=== PATIENT | male | born 1965 | race Caucasian/White ===

== ENCOUNTER → 2018-07-01 14:58 | Outpatient (CLI) | payer BC, SELFPAY ==
--- NOTE | 2018-07-01 11:50 | COLBX_PTH ---
PATIENT: MONTEZ NICOLE LOC: [facility] U#:[id number] AGE/SX: 60/M ROOM: RE07/01/[address]: Dr. Mario Livingston MD : 1965 BED: DIS: SPEC #: [id number] RECD: 07/01/18 14:34 STATUS: DIEGO ALEXANDR #: [id number] THOMAS: 07/01/18 11:[address]: Mario Livingston DEPT: SURGICAL PATHOLOGY RECD BY: Brianne Birmingham ENTERED: 07/01/18 15:50 SP TYPE: COLON BX OTHR DR: AARTI Tissues: A - Splenic capsule B - Sigmoid colon biopsy Procedures: Surgery Specimen Level IV HEADER OPERATION: Colonoscopy with polypectomy PRE-OP DIAGNOSIS: Rectal bleeding TISSUE SUBMITTED: A - Splenic flexure polyp biopsy, rule out adenoma, B - Proximal sigmoid polyp, rule out adenoma MICROSCOPIC DIAGNOSIS A. Splenic flexure polyp, biopsy: Tubular adenoma. B. Proximal sigmoid polyp, polypectomy: Tubular adenoma. NATALIE:kendall 07/02/18 MICROSCOPIC DESCRIPTION Slides are reviewed. GROSS DESCRIPTION A - Received in fixative is one container labeled with the patient's name and designated splenic flexure. The specimen consists of one irregular fragment of light huff soft tissue that measures 0.3 x 0.2 x 0.1 cm. The specimen is totally submitted in one cassette. B - Received in fixative is one container labeled with the patient's name and designated proximal sigmoid. The specimen consists of a polypoid fragment of huff tissue measuring 1.5 x 1 x 0.3 cm. The specimen is trisected and totally submitted in one cassette. / AM:kendall 07/01/18 TC:1 CPT: 01894 x2
== END ==
PROVIDERS: Referring Provider Internal Medicine Gastroenterology; Visit Provider Internal Medicine Gastroenterology
DX: K62.5 Hemorrhage of anus and rectum (principal)
CPT/HCPCS: 88305

== ENCOUNTER 2021-01-06 14:00 | Outpatient (RCR) | payer BC, OTHER, SELFPAY ==
--- NOTE | 2020-11-01 17:04 | HP.PTEVAL_ITS ---
Patient's Visit Information MONTEZ NICOLE is a 55 year old M referred to Physical Therapy by MADELEINE PARKINSON with a diagnosis of R shoulder biceps tenodesis with labral repair 10/06/20. Date of Evaluation: 11/01/20 Physical Therapist: Peter Gibson, PT, ATC - Visit Plan Frequency: 2-3x /Week Duration: 4-6 Weeks Plan: No active shoulder or elbow flexion until 6 weeks. Cont mostly with PROM/mobs for first 2 weeks and then progress to AROM and strengthening ex's consisting of rot cuff strengthening, scap stab ex's, UBE, and CP for pain - Subjective DOS: 10/06/20. Pt had a biceps tenodesis and labral repair in his R shoulder at that time. Pt reports he feels like he is getting a little better, but notes his is still so sore that he has difficulty with sleep at night. Pt is R hand dominant. Pt reports he has no PMHx of R shoulder complications prior to this surgery. 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 Pt reports he worked prior to the surgery. Pt reports his job requires a lot of lifting and work with his hands that could weigh up to 50#. Pt reports the soreness is constant in R shoulder. Pt reports he has not been wearing his sling secondary to experiencing more pain with the sling on. Pt reports No UE tingling or numbness as long as his sling is off. 8/10 at rest, 10/10 pain at worst (at night time while he is sleeping) - Pain R shoulder Pain Intensity (Out of 10): 7 Pain Intensity Range: 10 - Objective Neuro: B UE sensation is WNL to light touch. B bicepital reflex= 2/3. Observa tion: Incisions are fully healed. No signs of infection. ROM: L shoulder flex= 150, abd= 165, ER= 0, IR WNL. R shoulder flex= 95, abd= 80. MMT: L shoulder 5/5 throguhout. R shoulder 3-/5 and painful - Goals Goal 1:: Decrease R shoulder pain x 50% to aid with sleep Goal Time Frame: 4-6 Weeks Goal 2:: Increase R shoulder strength x 1 grade to aid with RTW without limitation Goal Time Frame: 4-6 Weeks Goal 3:: Increase R shoulder flexion and abduction ROM x 30 degrees to aid with overhead activity Goal Time Frame: 4-6 Weeks Goal 4:: I with HEP Goal Time Frame: 4-6 Weeks - Rehabilitation Potential Physical Therapy Diagnosis: R shoulder pain, weakness, and limited ROM secondary to R biceps tenodesis with labral repair Rehabilitation Potential: Good - Anticipated Interventions Patient/Client Instruction: Educate patient on: Condition, Plan of Care For the Purpose of:: To improve self management Therapeutic Exercise to Include: Strength training, Endurance training, Flexibilty training, Passive ROM, Active ROM, Scapular Strength/Stabilization For the Purpose of:: To decrease pain, To increase ROM, To improve muscle performance and motor function Cryotherapy (ice pack, ice massage): Yes For the Purpose of:: To decrease pain Thank you for the opportunity to evaluate your patient. For Medicare and Medicare HMO plans, please review the plan of care and approve it. It will need to be FAXED BACK to us at [phone] for Medicare purposes. For Medicare only, by signing this I certify the plan of care. Please let me know if there are questions or concerns regarding this plan of care. Physician Signature: Date:
--- NOTE | 2021-05-09 10:30 | HP.PT.NRP ---
MONTEZ NICOLE was seen in my office for initial evaluation on 11/01/20. The following Plan of Care was established for this patient: Initial Frequency: 2-3x /Week Initial Duration: 4-6 Weeks Patient/Client Instruction: Educate patient on: Condition, Plan of Care For the Purpose of:: To improve self management Therapeutic Exercise to Include: Strength training, Endurance training, Flexibilty training, Passive ROM, Active ROM, Scapular Strength/Stabilization For the Purpose of:: To decrease pain, To increase ROM, To improve muscle performance and motor function Cryotherapy (ice pack, ice massage): Yes For the Purpose of:: To decrease pain This patient was last seen in our office . Pertinent comments regarding their Physical therapy will appear below: Pt was treated for 20 PT visits for R shoulder pain through the date of 01/06/21. Pt has not returned today and is therefore discontinued at this time. At this point I will be discontinuing this patient from physical therapy. I would be happy to see this patient again in the future if found appropriate by the physician. Thank you! Peter Gibson, PT, ATC Balance/Gait/Functional tests - Balance/Special Test Scores Quick DASH Score: 84.0900
== END 2021-01-06 19:00 | disposition home or self-care (01) ==
LOC: PT 14:00
PROVIDERS: PCP Nurse Practitioner Primary Care; Visit Provider Orthopaedic Surgery
DX: Z47.89 Encounter for other orthopedic aftercare (principal); S43.431D Superior glenoid labrum lesion of right shoulder, subsequent encounter; X58.XXXD Exposure to other specified factors, subsequent encounter; M75.121 Complete rotator cuff tear or rupture of right shoulder, not specified as traumatic; M75.41 Impingement syndrome of right shoulder; M25.711 Osteophyte, right shoulder; M75.21 Bicipital tendinitis, right shoulder
CPT/HCPCS: 97110; 97140; 97161

== ENCOUNTER → 2022-03-20 | Outpatient (CLI) | payer BC, SELFPAY ==
[2022-03-20 18:19] LABS: ALB/GLOB Ratio 1.1 RATIO (0.9-2.4); AST(SGOT) 16 U/L (15-37); Alanine Aminotransfer ALT/SGPT 30 U/L (16-61); Albumin, Serum 3.9 g/dL (3.2-5.0); Alkaline Phosphatase 61 U/L (45-117); BUN 18 mg/dL (7-18); BUN/Creat Ratio 16.7 RATIO (10-20); Calcium,Total 8.7 mg/dL (8.5-10.1); Cholesterol 250 mg/dL (200); Creatinine, Serum 1.08 mg/dL (0.70-1.30); EST Glomerular Filtration Rate 75 mL/min (>60); Est Glom Filt Rate - Afr Amer 91 mL/min (>60); Globulin 3.5 g/dL (2.2-4.2); Glucose 115 mg/dL (74-106); Protein, Total 7.4 g/dL (6.4-8.2); Triglycerides 195 mg/dL
[2022-03-20 18:20] LABS: Anion Gap 11 (5-15); Chloride 102 mmol/L (98-107); High Density Lipoprotein 41 mg/dL; Potassium 3.9 mmol/L (3.5-5.1); Sodium Level 138 mmol/L (136-145); Thyroid Stim Hormone (TSH) 1.37 uIU/mL (0.358-3.74); Very Low Density Lipoprotein 39 mg/dL (5-40)
== END | disposition home or self-care (01) ==
LOC: MFPLAB 15:54
PROVIDERS: PCP Nurse Practitioner Primary Care; Visit Provider Family Medicine
DX: E11.65 Type 2 diabetes mellitus with hyperglycemia (principal)
CPT/HCPCS: 36415; 80053; 80061; 84403; 84443

== ENCOUNTER → 2023-01-04 | Outpatient (CLI) | payer BC, SELFPAY ==
--- NOTE | 2023-01-04 13:41 | NEURO_ITS ---
NCS and/or EMG Patient Report Ordering Doctor: Brett Monroy DATE OF SERVICE: 01/04/23 Clinical Summary: 57 year old male patient presenting with complaints of numbness/tingling in the hands. This EMG/NCS is performed to evaluate for bilateral carpal tunnel syndrome. Nerve Conduction Studies: The right median-D2 SNAP distal latency was prolonged with reduced amplitude. The left median-D2 SNAP distal latency was prolonged. The right median-randolph SNAP was absent. The right median-APB CMAP distal latency was prolonged. The median motor conduction velocity was reduced bilaterally in the forearm segment. The median F-wave onset latency was prolonged bilaterally. Needle Examination: Needle examination of the bilateral upper extremities demonstrated a higher proportion of motor unit action potentials with reduced recruitment, increased a mplitude, increased duration, and polyphasia in the bilateral abductor pollicis brevis muscles. Impression: There is electrodiagnostic evidence of the following - 1) Severe, bilateral median mononeuropathies at the wrists (carpal tunnel syndrome), with secondary motor fiber axonal loss Multi Select Codes Neurology Neurology Interp Codes: 45789-68 EMG Only, 2 Extremities and 62922-40 Nrv d test 13/> studies (interp)
== END | disposition home or self-care (01) ==
LOC: PSN 12:08
PROVIDERS: PCP Family Medicine; Referring Provider Orthopaedic Surgery Sports Medicine; Visit Provider Orthopaedic Surgery Sports Medicine
DX: G56.03 Carpal tunnel syndrome, bilateral upper limbs (principal)
CPT/HCPCS: 95886; 95913

== ENCOUNTER 2023-02-07 06:55 | Day surgery (SDC) | payer BC, SELFPAY ==
[2023-02-07] VITALS (8 sets, daily range): BP systolic 137–157; BP diastolic 80–102; PULSE 56–80; RESP 14–18; TEMP 35.9–36.6; O2SAT 93–100; BMI 29.0
[2023-02-07] MEDS: Lactated Ringers 1,000 ML 15 ML IV (07:30)
[2023-02-07 07:34] LABS: Bedside Glucose 138 mg/dL (74-106)
--- NOTE | 2023-02-07 08:26 | PCM.HP.STD ---
HPI - General HPI Narrative BRETT NICOLE, is a 57 M who presents for bilateral endoscopic carpal tunnel release. No changes to his physical exam or history. Patient wishes to proceed. Risks alternatives benefits discussed as well as postop pain medications with [id number] Tylenol or anti-inflammatories as needed. Typically do not prescribe narcotic medications. Use local anesthetic. Plan to have the dressing in place for the first 2 days follow-up in the office at that time to change bandage. Only light use of the hand for activities of daily living no heavy lifting or grasping. No changes to the history or physical exam. The patient wishes to proceed both wrists were marked. We will proceed with the case. MR#: [id number] Acct: [id number] Name: BRETT NICOLE Rep #: [id number] : 1965 Provider: Dr. Brett Monroy MD Age/Sex: 57/M Location: [facility] [place].[facility] Status: Signed Intake Intake Visit Reasons: left hand Is patient in pain?: No Allergies No Known Allergies Allergy (Unverified 01/08/23 15:31) Medications blood sugar diagnostic (sofatutorTouch Verio test strips) #10 ea 12/11/22 [History Confirmed 01/08/23] blood-glucose meter (OneTouch Verio Flex Meter) #1 ea 12/11/22 [History Confirmed 01/08/23] lancets 30 gauge (OneTouch Delica Plus Lancet) #100 ea 12/11/22 [History Confirmed 01/08/23] pantoprazole 40 mg tablet,delayed release 40 mg PO DAILY 12/11/22 [History Confirmed 01/08/23] semaglutide 3 mg tablet (Rybelsus) 3 mg PO DAILY 12/11/22 [History Confirmed 01/08/23] sodium,potassium,mag sulfates 17.5 gram-3.13 gram-1.6 gram oral soln 16 oz PO ONCE 12/11/22 [History Confirmed 01/08/23] [facility] Medical History (Updated 12/11/22 @ 10:49 by Brett Monroy MD) Bilateral carpal tunnel syndrome Diabetes Trigger finger, left ring finger Surgical History (Updated 12/11/22 @ 10:27 by Melissa Cantu) History of shoulder surgery Previous back surgery Family History (Updated 12/11/22 @ 10:28 by Melissa Cantu) Other Arthritis Cancer Hypertension Myocardial infarction Social History (Updated 12/11/22 @ 10:28 by Melissa Cantu) Smoking Status: Never smoker alcohol intake: current alcohol intake frequency: a few times a month HPI left hand Details: Parts of this documentation were recorded by a scribe, this documentation accurately reflects the service provided and the decisions made by me, Dr. Brett Monroy MD 01/08/23 5609. BRETT NICOLE is a 57 year old M here today for FU NCS for CTS. the right hand is little bit worse and goes numb with even picking up a pen pencil or other small instruments. The first 3 digits are numb. Ortho Exam General General: Yes no acute distress Neurologic: Yes alert and Yes oriented x3 Psychologic: Yes reasonable and appropriate Right Wrist/Hand Skin/Wound: Yes CDI, No Swelling, No Ecchymosis, Yes nail intact and Yes capillary refill normal Right Wrist: Yes ROM-Extension 0-60, ROM-Flexion 0-80, ROM-Pronation 0-80, Tinel's and Phalen's; No Distal radioulnar joint, CMC Grind, Thenar Atrophy or Hypothenar Atrophy Motor: EPL: 5, FDP-2: 5, 1st Dorsal Interosseous: 5 and APB: 4 Sensation: Radial: I, Ulnar: I and Median: D Left Wrist/Hand Skin/Wound: Yes CDI, No Swelling, No Ecchymosis, Yes nail intact, Yes capillary refill normal and No erythema Left Wrist: Yes ROM-Extension 0-60, Yes ROM-Flexion 0-80, Yes ROM-Pronation 0-80, Yes ROM-Supination 0-90, Yes Tinel's and Yes Phalen's; No Thenar Atrophy and No Hypothenar Atrophy Motor: EPL: 5, FDP-2: 5, 1st Dorsal Interosseous: 5 and APB: 4 Sensation: Radial: I, Ulnar: I and Median: D Supplemental Info [facility] Pulmonary Services/Neurology [address] [place] [address] MR#: [id number] Acct: [id number] Name: BRETT NICOLE Rep #: [id number] : 1965 57 From: Massimo Ugalde MD Referring Dr: Brett Monroy MD Status: REG CLI Location: PSN Date: 01/04/23 Sex: M C NCS and/or EMG Patient Report Ordering Doctor: Brett Monroy DATE OF SERVICE: 01/04/23 Clinical Summary: 57 year old male patient presenting with complaints of numbness/tingling in the hands. This EMG/NCS is performed to evaluate for bilateral carpal tunnel syndrome. Nerve Conduction Studies: The right median-D2 SNAP distal latency was prolonged with reduced amplitude. The left median-D2 SNAP distal latency was prolonged. The right median-randolph SNAP was absent. The right median-APB CMAP distal latency was prolonged. The median motor conduction velocity was reduced bilaterally in the forearm segment. The median F-wave onset latency was prolonged bilaterally. Needle Examination: Needle examination of the bilateral upper extremities demonstrated a higher proportion of motor unit action potentials with reduced recruitment, increased amplitude, increased duration, and polyphasia in the bilateral abductor pollicis brevis muscles. Impression: There is electrodiagnostic evidence of the following - 1) Severe, bilateral median mononeuropathies at the wrists (carpal tunnel syndrome), with secondary motor fiber axonal loss Multi Select Codes Neurology Neurology Interp Codes: 46601-64 EMG Only, 2 Extremities and 32274-23 Nrv cndj test studies (interp) 01/04/23 1358 <Electronically signed by Massimo Ugalde MD> Date Massimo Ugalde MD CC: Dr. Massimo Ugalde MD; Dr. Ramakrishna López MD; Dr. Brett Monroy MD ~ Date Dictated: 01/04/23 1341 Date Transcribed: 01/04/23 1341 Crude Oil Treater: Signed Coding Level of Care Code Off vis,est,level 4 Diagnoses Bilateral carpal tunnel syndrome G56.03 Assessment and Plan Assessment and Plan (1) Bilateral carpal tunnel syndrome: Status: Acute Plan: 57-year-old man with signs and symptoms as well as nerve conduction study evidence of bilateral carpal tunnel syndrome. I did warn the patient that this can can become worse or more permanent with time and that the longer its been going on the more unpredictable surgical results may be and this may take longer or even not recover from the surgery. The nerve conduction study states that this is severe with secondary loss. He can try nonoperative treatment with nighttime splinting rest ice anti-inflammatories or bracing. Surgical options would be open or endoscopic carpal tunnel release. Talked about pros cons risk benefits of each of these methods of treatment patient would like to go ahead with left and right concomitant bilateral endoscopic carpal tunnel release. He has good blood glucose control. No other medical problems. We will proceed with surgery. Pros and cons risks and benefits were discussed with the patient including but not limited to infection, pain, stiffness, bleeding, damage to surrounding structures, neurovascular injury, recurrence or retear, failure or wear of hardware or fixation, instability, fracture, deep vein thrombosis and pulmonary embolism, anesthetic risks, , patient dissatisfaction, need for further surgery and other risks. Patient understood and wished to proceed with surgery, and signed the informed consent documentation. [facility] Medical History Arthritis Back pain Bilateral carpal tunnel syndrome Diabetes Dietary restriction Former smoker Gastric reflux History of steroid therapy History of ulceration Leg cramps Prostate disease Trigger finger, left ring finger Wears glasses Home Medications blood sugar diagnostic (OneTouch Verio test strips) #10 ea 12/11/22 [History Last Taken Unknown] blood-glucose meter (OneTouch Verio Flex Meter) #1 ea 12/11/22 [History Last Taken Unknown] lancets 30 gauge (OneTouch Delica Plus Lancet) #100 ea 12/11/22 [History Last Taken Unknown] pantoprazole 40 mg tablet,delayed release 40 mg PO DAILY 12/11/22 [History Last Taken Unknown] semaglutide 3 mg tablet (Rybelsus) 3 mg PO DAILY 12/11/22 [History Last Taken Unknown] Allergy/AdvReac Type Severity Reaction Status Date / Time No Known Allergies Allergy Verified 02/07/23 07:07 Family History (Updated 12/11/22 @ 10:28 by Melissa Cantu) Other Arthritis Cancer Hypertension Myocardial infarction Surgical History History of shoulder surgery Hx of colonoscopy Previous back surgery Social History (Updated 12/11/22 @ 10:28 by Melissa Liao Smoking Status: Former smoker alcohol intake: current alcohol intake frequency: a few times a month Vital Signs Vital Signs Vital Signs: 02/07/23 07:26 02/07/23 07:26 Temperature 98 F Temperature Source Temporal Pulse Rate 65 Respiratory Rate 17 Respiratory Pattern Normal Blood Pressure 137/89 H Blood Pressure Mean 105 Blood Pressure Source Monitor Blood Pressure Position Semi-Fowlers Blood Pressure Location Left Arm Pulse Ox 98 Oxygen Delivery Method Room Air Weight Weight: 202 lb 13.204 oz Body Mass Index (BMI) 29.0 Results Lab / Micro Data Labs: Laboratory Results - last 24 hr 02/07/23 07:15: POC Glucose 138 H
[2023-02-07] MEDS: Cefazolin 2 GM in 0.9% Normal Saline (100mL Bag) 100 ML IV (08:40)
--- NOTE | 2023-02-07 09:31 | OP.PCM_ITS ---
Problems Associated Problem List Diagnoses (1) Bilateral carpal tunnel syndrome: Report of Operation Date of Procedure: 02/07/23 Pre-Operative Diagnosis: bilateral carpal tunnel syndrome Post-Operative Diagnosis: same Surgery/Procedure Performed:: bilateral endoscopic carpal tunnel release Surgeon: Brett Mornoy Type of Anesthesia: MAC/Supplemental/Local Anesthesiologist: Siddhartha Solomon Estimated Blood Loss (mL): 20 Description of Procedure: Patient was brought to the operating room theater.? The patient was administered 2g iv ancef prior to the start of the procedure.? Placed supine on the operating room table.? Anesthesia induced.? SCDs on the legs.? Tourniquet applied to both upper operative extremities, appropriately padded. Arm table used. Operative extremities prepped and draped in the usual sterile fashion with chlorhexidine- based prep solution allowing over 3 minutes drying time prior to draping.? Preoperative timeout performed to confirm the site patient and the surgery. I performed the same operation on both sides. Started with the right side then did the left side. Limb limb elevated tourniquet inflated to 250 mmHg.? I used the [employer] center line endoscopic carpal tunnel kit / technique. Tourniquet to 250mmhg. 5cc 0.25% bupivicaine at incision site. ? I made a t ransverse 2 cm incision in line with the? transverse wrist crease.? This was in line with the fourth digit.? I carried the dissection down through skin and subcutaneous tissue achieved meticulous hemostasis. Just ulnar to palmaris tendon.? I incised the antebrachial fascia.? I passed sequential dilators into the carpal tunnel along the radial border of the Guyon's canal aiming for the fourth digit with the hand in extension. I used a synovial elevator to identify the transverse fibers of the transverse carpal tunnel ligament.? Passed the scope into the carpal tunnel. Once I had identified the full proximal and distal extent of the ligament I fully released the ligament under direct visualization by deploying the blade and slowly withdrawing the scope made sequential passes until I no longer felt tension as well as the entire extent of the ligament was released under direct visualization.? Sounded the tunnel with blackwell tenotomy scissors, complete release, no bands. Arthroscope light was more visible through the skin. Pictures taken printed and scanned into the chart. Wound thoroughly irrigated.? Tourniquet let down prior to end of the case and meticulous hemostasis achieved.? Thorough irrigation.? ? Incisions closed with 3-0 nylon for the skin.?Skin was cleaned and dried. adaptic 4x4 gauze and [place]. Patient woken up,? transferred off the operating room table and taken to postanesthetic care unit in stable condition. All sponge needle instrument counts were correct no complications.? Plan for the patient to be discharged home according to day surgery criteria when they are comfortable. Follow-up in the office in 2 days time. Gentle ROM hand and elbow no heavy lifting. cpt 34630 Complications none Admit VTE Documentation VTE Present on Admission: No VTE Mechan Device Prophylaxis: SCD's VTE Pharm Prophylaxis ordered?: No Reason prophylaxis not ordered:: Treatment Not Indicated Procedures Musculoskeletal 20xxx-29xxx: 89785 [facility] ENDOSCOPY/SURGERY
--- NOTE | 2023-02-07 09:34 | DCINST_ITS ---
Discharge Instructions Diet Discharge Diet: No restrictions Activity Ice area for (Minutes): 10 Lifting Restrictions: no heavy lifting or gripping Keep extremity elevated above heart level: Operative Extremity Dressing / Incision Call your doctor if your incision/area has: Continuous Slow Oozing, Sudden Increased Bleeding, Increased Pain/ Swelling, Increased Redness, Foul Smelling Discharge and Swelling at the incision site Change Dressing in: leave in place till F/U Follow Up Care Please Follow Up With: Siddhartha Solomon MD Test Results: Test results from this visit will be discussed in further detail at your follow- up appointment, if applicable. Pending Tests Upon Discharge: 2 days Discharge Plan Admission Attending Provider: Brett Monroy Primary Care Provider: Ramakrishna López Discharge Orders/Prescriptions Prescriptions: No Action (DME) blood-glucose meter [OneTouch Verio Flex meter] Misc See Rx Instructions .ROUTE .MEDSUPPLY Qty: 1 Rx Instructions: As directed (DME) lancets [OneTouch Delica Plus Lancet] 30 gauge misc See Rx Instructions .ROUTE .MEDSUPPLY Qty: 100 Rx Instructions: As directed (DME) OneTouch Verio test strips Strip See Rx Instructions .ROUTE .MEDSUPPLY Qty: 10 Rx Instructions: As directed pantoprazole 40 mg tablet,delayed release (DR/EC) 40 mg PO DAILY Rybelsus 3 mg tablet 3 mg PO DAILY Referrals / Follow Up: Ramakrishna López MD [Primary Care Provider] - Brett Monroy MD [Med Staff - Active Staff] - Disposition Disposition (needs filled in before D/C Order can be placed): Home, Self Care
[2023-02-07] MEDS: Oxycodone/Apap 5/325 Tablet PO (10:33)
== END 2023-02-07 11:36 | disposition home or self-care (01) ==
LOC: SDC 06:55 → AC 06:57
PROVIDERS: PCP Family Medicine; Referring Provider Orthopaedic Surgery Sports Medicine; Visit Provider Orthopaedic Surgery Sports Medicine
PROC: (CPT 29848; principal; 2023-02-07 08:30)
DX: G56.03 Carpal tunnel syndrome, bilateral upper limbs (principal); E11.9 Type 2 diabetes mellitus without complications; K21.9 Gastro-esophageal reflux disease without esophagitis; Z87.891 Personal history of nicotine dependence; Z79.899 Other long term (current) drug therapy
CPT/HCPCS: 29848; 01810; 82962; J7120; J2405

== ENCOUNTER → 2023-10-24 | Outpatient (CLI) | payer BC, SELFPAY ==
[2023-10-24 15:42] LABS: Anion Gap 10 (5-15); BUN 20 mg/dL (7-18); BUN/Creat Ratio 17.1 RATIO (10-20); Calcium,Total 8.9 mg/dL (8.5-10.1); Chloride 104 mmol/L (98-107); Cholesterol 230 mg/dL (200); Creatinine, Serum 1.17 mg/dL (0.70-1.30); EST Glomerular Filtration Rate 68 mL/min (>60); Est Glom Filt Rate - Afr Amer 82 mL/min (>60); Glucose 175 mg/dL (74-106); High Density Lipoprotein 38 mg/dL; Potassium 3.9 mmol/L (3.5-5.1); Sodium Level 136 mmol/L (136-145); Triglycerides 222 mg/dL; Very Low Density Lipoprotein 44 mg/dL (5-40)
== END | disposition home or self-care (01) ==
PROVIDERS: PCP Family Medicine; Referring Provider Family Medicine; Visit Provider Family Medicine
DX: E78.5 Hyperlipidemia, unspecified (principal); E11.65 Type 2 diabetes mellitus with hyperglycemia
CPT/HCPCS: 36415; 80048; 80061